=== PATIENT | male | born 1980 | race Caucasian/White ===

== ENCOUNTER 2019-05-04 14:38 | Emergency (ER) | payer MEDICAID ==
[~2019-05-04] VITALS: Ht 185.4 cm; Wt 79.9 kg
[2019-05-04 14:42] VITALS: BP 159/106
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
[2019-05-04] MEDS ORDERED: LIDOCAINE-MPF 1%, 5ML ONE (14:54)
[2019-05-04] MEDS ORDERED: LIDOCAINE-MPF 1%, 5ML INFIL ONE (15:00)
--- NOTE | 2019-05-04 15:40 | NUR ---
SUTURES PLACED BY Kortney GREEN
--- NOTE | 2019-05-04 15:52 | NUR ---
DISCHARGE INSTRUCTIONS REVIEWED
== END 2019-05-04 16:11 | disposition home or self-care (01) ==
LOC: ED 15:58
DX: S01.511A Laceration without foreign body of lip, initial encounter (principal); W19.XXXA Unspecified fall, initial encounter; Y93.I9 Activity, other involving external motion; Y92.488 Other paved roadways as the place of occurrence of the external cause; Y99.8 Other external cause status
CPT/HCPCS: 12013; 99283